=== PATIENT | female | born 1950 | race Two or more races ===

== ENCOUNTER → 2024-12-26 | Outpatient (CLI) | payer MEDICARE, MEDICAID, SELFPAY ==
--- NOTE | 2024-12-26 15:50 | XR_ITS ---
Examination: Shoulder,left, 3 views Technique: Shoulder AP internal rotation, AP external rotation, Y view shoulder, 3 views Exam date and time :December 26, 2024 1515 hours INDICATIONS: Left shoulder pain beginning 2 months ago. FINDINGS: Prominent osteopenia Advanced osteoarthritis glenohumeral joint No fracture or shoulder dislocation IMPRESSION: Advanced osteoarthritis glenohumeral joint
== END | disposition home or self-care (01) ==
PROVIDERS: PCP Nurse Practitioner Family; Referring Provider Nurse Practitioner Family; Visit Provider Nurse Practitioner Family
DX: M19.012 Primary osteoarthritis, left shoulder (principal)
CPT/HCPCS: 73030

== ENCOUNTER → 2025-02-18 | Outpatient (CLI) | payer MEDICARE, MEDICAID, SELFPAY ==
--- NOTE | 2025-02-18 | XR_ITS ---
Examination: Shoulder,right, 3 views Technique: Shoulder AP internal rotation, AP external rotation, Y view shoulder, 3 views Exam date and time :February 18, 2025 1115 hours INDICATIONS: Right shoulder pain 18 months. 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 No fracture or shoulder dislocation IMPRESSION: Moderate to advanced osteoarthritis
== END | disposition home or self-care (01) ==
LOC: CDIM 11:06
PROVIDERS: PCP Nurse Practitioner Family; Referring Provider Nurse Practitioner Family; Visit Provider Nurse Practitioner Family
DX: M19.011 Primary osteoarthritis, right shoulder (principal)
CPT/HCPCS: 73030

== ENCOUNTER → 2025-05-03 | Outpatient (CLI) | payer MEDICARE, MEDICAID, SELFPAY ==
--- NOTE | 2025-05-03 16:05 | XR_ITS ---
Examination: Bilateral lower legs 4 views Technique: AP lateral right and left tibia-fibula is 4 views Date and time: May 03, 2025 1610 hrs. Indications: Patient fell 8 days ago with injury to both lower legs, bilateral lower leg pain. Findings: No fracture or dislocation involving either lower leg Bilateral mild to moderate tricompartment knee osteoarthritis Bilateral moderate osteoarthritis tibiotalar joints Impression: No fracture or dislocation involving either lower leg
--- NOTE | 2025-05-03 16:05 | XR_ITS ---
Examination: Ankle Bilateral, 6 views Technique: AP oblique lateral each ankle total 6 views Indications: Patient fell 8 days ago with injury of both ankles, bilateral ankle pain Date and time of exam: May 03, 2025 1610 hrs. Findings: No fracture or dislocation involving either ankle Bilateral mild to moderate osteoarthritis tibiotalar joints Bilateral large plantar posterior bony calcaneal spurs Extensive ossification in the right plantar fascia Impression: No fracture or dislocation involving either ankle Large bilateral plantar posterior bony calcaneal spurs Extensive right foot plantar fasciitis
--- NOTE | 2025-05-03 16:05 | XR_ITS ---
Examination:Left hip AP, lateral, AP pelvis 3 views Technique: Hip AP lateral, AP pelvis, 3 views Exam date and time:May 03, 2025 1610 hrs. Indications: Patient fell 8 days ago with injury to left hip, left hip pain. Findings: No left hip fracture or dislocation Right hip bones of the pelvis intact Impression: No acute hip or pelvic fracture.
== END | disposition home or self-care (01) ==
LOC: CDIM 15:40
PROVIDERS: PCP Nurse Practitioner Family; Referring Provider Nurse Practitioner Family; Visit Provider Nurse Practitioner Family
DX: M77.32 Calcaneal spur, left foot (principal); M77.31 Calcaneal spur, right foot; M72.2 Plantar fascial fibromatosis; S79.912A Unspecified injury of left hip, initial encounter; S89.92XA Unspecified injury of left lower leg, initial encounter; S89.91XA Unspecified injury of right lower leg, initial encounter; S99.912A Unspecified injury of left ankle, initial encounter; S99.911A Unspecified injury of right ankle, initial encounter; W19.XXXA Unspecified fall, initial encounter
CPT/HCPCS: 73502; 73590; 73610

== ENCOUNTER → 2025-05-17 | Outpatient (CLI) | payer MEDICARE, SELFPAY | END | disposition home or self-care (01) | LOC: SWHD 08:17 | PROVIDERS: PCP Nurse Practitioner Family; Referring Provider Nurse Practitioner Family; Visit Provider Student in an Organized Health Care Education/Training Program | DX: S81.802A Unspecified open wound, left lower leg, initial encounter (principal); S81.801A Unspecified open wound, right lower leg, initial encounter; S80.12XA Contusion of left lower leg, initial encounter; W19.XXXA Unspecified fall, initial encounter; I10 Essential (primary) hypertension; E11.69 Type 2 diabetes mellitus with other specified complication; Z79.84 Long term (current) use of oral hypoglycemic drugs | CPT/HCPCS: 99213; A9270; G0463 ==

== ENCOUNTER → 2025-05-24 | Outpatient (CLI) | payer MEDICARE, SELFPAY | END | disposition home or self-care (01) | PROVIDERS: PCP Nurse Practitioner Family; Referring Provider Nurse Practitioner Family; Visit Provider Surgery | DX: S81.802A Unspecified open wound, left lower leg, initial encounter (principal); S81.801A Unspecified open wound, right lower leg, initial encounter; S80.12XA Contusion of left lower leg, initial encounter; W19.XXXA Unspecified fall, initial encounter; I10 Essential (primary) hypertension; E11.69 Type 2 diabetes mellitus with other specified complication; Z79.84 Long term (current) use of oral hypoglycemic drugs | CPT/HCPCS: 99214; G0463 ==